=== PATIENT | female | born 1940 | race Caucasian/White ===

== ENCOUNTER 2017-11-21 16:34 | Emergency (ER) | payer OTHER, SELFPAY | END 2017-11-21 19:38 | disposition home or self-care (01) | PROVIDERS: Emergency Provider Emergency Medicine; Family Provider Family Medicine; PCP Family Medicine; Visit Provider Emergency Medicine | DX: R10.32 Left lower quadrant pain (principal) | CPT/HCPCS: 74177; 80053; 83605; 83690; 85025; 85610; 85730; 96361; 96374; 96375; 99058; 99284; C9113; J2405 ==

== ENCOUNTER → 2018-03-29 11:31 | Outpatient (CLI) | payer OTHER, SELFPAY | PROVIDERS: Family Provider Family Medicine; PCP Family Medicine; Visit Provider Internal Medicine | DX: L98.412 Non-pressure chronic ulcer of buttock with fat layer exposed (principal); L08.9 Local infection of the skin and subcutaneous tissue, unspecified; Z89.611 Acquired absence of right leg above knee | CPT/HCPCS: 87070; 87075; 87077; 87147; 87186; 87205; 99213 ==

== ENCOUNTER → 2018-03-29 14:28 | Outpatient (CLI) | payer OTHER, SELFPAY | PROVIDERS: Family Provider Family Medicine; PCP Family Medicine; Visit Provider Internal Medicine ==

== ENCOUNTER → 2018-04-06 13:22 | Outpatient (CLI) | payer OTHER, SELFPAY | PROVIDERS: Family Provider Family Medicine; PCP Family Medicine; Visit Provider Internal Medicine | DX: B95.7 Other staphylococcus as the cause of diseases classified elsewhere (principal); L89.310 Pressure ulcer of right buttock, unstageable | CPT/HCPCS: 11042 ==

== ENCOUNTER → 2018-04-13 14:06 | Outpatient (CLI) | payer OTHER, SELFPAY ==
--- NOTE | 2018-04-13 | OV.WND_ITS ---
Progress Note Details Patient Name: Jackie Yang Patient Number: [id number] PatientPatientDate: 04/13/2018 Clinician: Dori Hernández Clinician Cosigner: Mara Cohen Physician / Personnel Generalist Manager: Adalberto Lombardo SUBJECTIVE Chief Complaint This information was obtained from the patient Wound on Hip Allergies codeine, diphenhydramine, latex, penicillin, adhesive tape (Reaction: some adhesive tapes, rash) HPI This information was obtained from the patient 04/13/18. Seen by Dr. Lombardo. The patient does not report pain nor increased drainage associated with the chronic right gluteal non-pressure ulcer since her last visit. She'll also complete her course of doxycycline today that's been treating the recent resistant Staph cultured from the ulcer. 04/06/18. Seen by Dr. Lombardo. The patient does not report pain nor increased drainage associated with the chronic right gluteal non-pressure ulcer since her last visit. She apparently was not informed of the doxycycline that was prescribed to treat the resistant Staph positive culture taken at her last visit so she's not yet started on this. 03/29/18. Seen by Dr. Lombardo. 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 She does not report pain at the ulcer site and was placed on antibiotics recently by her PCP for an associated infection. She states she's not sedentary and in fact walks and performs daily activities as much as possible using a frame walker for assistance. Past Medical History This information was obtained from the patient Patient has a medical history of: Depression Anxiety Hypertension Hyperlipidemia Complaints and Symptoms This information was obtained from the patient Patient complains of: General Notes: I have reviewed and concur with the Review of Systems and Past Family Social History documents completed by the clinician, I have reviewed and concur with the Wound Assessment document completed by the clinician Hematologic/Lymphatic: Bleeding Tendency Integumentary (Hair/Skin/Nails): Open Sore Musculoskeletal: Assistive Devices Prior Wound History: Drainage, Erythema Patient denies complaints or symptoms related to: Cardiovascular (Central): Irregular heart beat Constitutional Symptoms (General Health): Chills, Fever Ear/Nose/Mouth/Throat: Hearing Loss / Aid Hematologic/Lymphatic: Bleeding / Clotting Disorders Musculoskeletal: Muscle Wasting Neurological: Loss of Protective Sensation Psychiatric: Memory Loss Respiratory: Shortness of Breath OBJECTIVE Constitutional Vital signs reviewed and noted. Well developed. Alert. Clean appearing.. Height/ Length: 61 in (154.94 cm), Weight: 113 lbs (51.36 kgs), BMI: 21.3, Temperature: 97.7 ?F (36.5 ?C), Pulse: 57 bpm, Respiratory Rate: 18 breaths/min, Blood Pressure: 129/79 mmHg, Pulse Oximetry: 100 %. Respiratory: No respiratory distress. Even respirations and without use of accessory muscles.. Musculoskeletal: Right leg AKA. Integumentary (Hair, Skin) Mild periwound erythema without warmth. Refer to appropriate clinician wound documentation for this visit; right gluteal ulcer extends to deep subcut with base minimally covered with pink granulation, remainder yellow adipose, fibrin and wet slough. Wound #1 Right Buttock is a chronic Full Thickness Atypical and has received a status of Not Healed. No tunneling has been noted. No sinus tract has been noted. No undermining has been noted. There is a large amount of serosanguineous drainage noted which has no odor. The patient reports a wound pain of level 0/10. The wound margin is rolled. Wound bed has No epithelialization, Yes eschar, Yes slough, No granulation. The periwound skin moisture is normal. The periwound skin exhibited: Induration , Rash, Erythema, Rubor. The temperature of the periwound skin is WNL. Periwound skin presents with s/s of infection. Confirmation Description and Treatment Plan is: Signs and Symptoms Present. Local Pulse is N/A. General Notes: 5.2x 5.0x .9 Can not visualize the base of the wound, full of slough. Neurological: Cranial nerves grossly intact with symmetric function normal by informal observation.. ASSESSMENT Active Problems ICD-10 (Encounter Diagnosis) L98.412 - Non-pressure chronic ulcer of buttock with fat layer exposed (Encounter Diagnosis) B95.7 - Other staphylococcus as the cause of diseases classified elsewhere PROCEDURES Wound #1 Wound #1 (Atypical) is located on the right buttock. A skin/subcutaneous tissue level surgical debridement with a total area debrided of 6 sq cm was performed by Adalberto Lombardo MD. Subcutaneous was removed along with devitalized tissue: slough. The following instrument(s) were used: forceps and scissors. Pain control was achieved using 4% Lido. A time out was conducted prior to the start of the procedure. No bleeding occurred. The procedure was tolerated well with a pain level of 0 throughout and a pain level of 0 following the procedure. Post Debridement Measurements: 5cm length x 1.2cm width x 0.9cm depth; with an area of 6 sq cm and a volume of 5.4 cubic cm; General Notes: Unable to see base of wound because of slough. Additional Information Muscle fascia or bone removed and sent to pathology?: No PLAN Wound Orders: Wound #1 Right Buttock Anesthetic Topical Xylocaine to wound bed. - In clinic Cleanser Cleanse Wound: - Normal Saline in clinic. May use distilled water at home. Rinse and gentle wipe. May Shower. - Please avoid getting tap water in wound. Dressings Pack wound: - Aquacel into wound bed gently. Primary dressing: - Border Foam dressing. Change Dressing: - Two Days Follow-Up Appointments Return Appointment: - - One week Other information: If you develop fever, chills, increased pain, drainage, redness or swelling please call our office. If after hours, respond to the ER. Should you experience any significant changes in your wound(s) or have any questions regarding your home care instructions please contact the wound center @ [phone]. If after hours, contact your primary care physician or go to the hospital emergency room. Additional Orders: Off-Loading Keep weight off: - Right buttock as much as possible. Use EHOB cushion when sitting. Scribing Attestation I attest, as the nurse, that I scribed these orders for the physician. I've reviewed the clinician's documentation and agree with the evaluation and plan as written. In addition, the patient's ulcer demonstrates evidence of non-viable devitalized tissue which will continue to benefit from sharp debridement to help promote granulation and expedite healing. Also, I'll defer additional antibiotics and we'll plan on placing a wound vac once it's approved by insurance. Electronic Signature(s) Signed By: Date: Adalberto Lombardo MD 04/14/2018 06:00:06 Entered By: Adalberto Lombardo on 04/14/2018 05:45:39
== END ==
PROVIDERS: Family Provider Family Medicine; PCP Family Medicine; Visit Provider Internal Medicine
DX: L98.412 Non-pressure chronic ulcer of buttock with fat layer exposed (principal); B95.7 Other staphylococcus as the cause of diseases classified elsewhere
CPT/HCPCS: 11042

== ENCOUNTER → 2018-04-20 14:10 | Outpatient (CLI) | payer OTHER, SELFPAY ==
--- NOTE | 2018-04-20 | OV.WND_ITS ---
Progress Note Details Patient Name: Jackie Yang Patient Number: [id number] PatientPatientDate: 04/20/2018 Clinician: Dori Hernández Clinician Cosigner: Leti Ye Physician / Development Assistant: Adalberto Lombardo SUBJECTIVE Chief Complaint This information was obtained from the patient Wound on Hip Allergies codeine, diphenhydramine, latex, penicillin, adhesive tape (Reaction: some adhesive tapes, rash) HPI This information was obtained from the patient 04/20/18. Seen by Dr. Lombardo. The patient does not report pain nor increased drainage associated with the chronic right gluteal non-pressure ulcer since her last visit. 04/13/18. Seen by Dr. Lombardo. The patient does not report pain nor increased drainage associated with the chronic right gluteal non-pressure ulcer since her last visit. She'll also complete her course of doxycycline today that's been treating the recent resistant Staph cultured from the ulcer. 04/06/18. Seen by Dr. Lombardo. The patient does not report pain nor increased drainage associated with the chronic right gluteal non-pressure ulcer since her last visit. She apparently was not informed of the doxycycline that was prescribed to treat the resistant Staph positive culture taken at her last visit so she's not yet started on this. 03/29/18. Seen by Dr. Lombardo. 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 She does not report pain at the ulcer site and was placed on antibiotics recently by her PCP for an associated infection. She states she's not sedentary and in fact walks and performs daily activities as much as possible using a frame walker for assistance. Past Medical History This information was obtained from the patient Patient has a medical history of: Depression Anxiety Hypertension Hyperlipidemia Complaints and Symptoms This information was obtained from the patient Patient complains of: General Notes: I have reviewed and concur with the Review of Systems and Past Family Social History documents completed by the clinician, I have reviewed and concur with the Wound Assessment document completed by the clinician Hematologic/Lymphatic: Bleeding Tendency Integumentary (Hair/Skin/Nails): Open Sore Musculoskeletal: Assistive Devices Prior Wound History: Drainage, Erythema Patient denies complaints or symptoms related to: Cardiovascular (Central): Irregular heart beat Constitutional Symptoms (General Health): Chills, Fever Ear/Nose/Mouth/Throat: Hearing Loss / Aid Hematologic/Lymphatic: Bleeding / Clotting Disorders Musculoskeletal: Muscle Wasting Neurological: Loss of Protective Sensation Psychiatric: Memory Loss Respiratory: Shortness of Breath OBJECTIVE Constitutional Vital signs reviewed and noted. Well developed. Alert. Clean appearing.. Height/ Length: 61 in (154.94 cm), Weight: 113 lbs (51.36 kgs), BMI: 21.3, Temperature: 98.0 ?F ( 36.67 ?C), Pulse: 57 bpm, Respiratory Rate: 18 breaths/min, Blood Pressure: 122/57 mmHg, Pulse Oximetry: 97 %. Respiratory: No respiratory distress. Even respirations and without use of accessory muscles.. Musculoskeletal: Right leg AKA. Integumentary (Hair, Skin) Mild periwound erythema without warmth. Refer to appropriate clinician wound documentation for this visit; right gluteal ulcer extends to deep subcut with base minimally covered with pink granulation, remainder mostly healthy appearing adipose with some fibrin and slough. Wound #1 Right Buttock is a chronic Full Thickness Atypical and has received a status of Not Healed. Subsequent wound encounter measurements are 5cm length x 2cm width x 1.8cm depth, with an area of 10 sq cm and a volume of 18 cubic cm. Necrotic adipose is exposed. No tunneling has been noted. No sinus tract has been noted. No undermining has been noted. There is a large amount of serosanguineous drainage noted which has no odor. The patient reports a wound pain of level 0/10. The wound margin is rolled. Wound bed has No epithelialization, Yes eschar, Yes slough, Yes bright red, firm granulation. The periwound skin moisture is normal. The periwound skin exhibited: Induration , Erythema. The temperature of the periwound skin is WNL. Periwound skin presents with s/s of infection. Confirmation Description and Treatment Plan is: Signs and Symptoms Present. Local Pulse is N/A. General Notes: Can not visualize wound base, full of slough, and dry eschar at the 9:00. Neurological: Cranial nerves grossly intact with symmetric function normal by informal observation.. ASSESSMENT Active Problems ICD-10 (Encounter Diagnosis) L98.412 - Non-pressure chronic ulcer of buttock with fat layer exposed PROCEDURES Wound #1 Wound #1 (Atypical) is located on the right buttock. A skin/subcutaneous tissue level surgical debridement with a total area debrided of 10 sq cm was performed by Adalberto Lombardo MD. to remove devitalized tissue: slough. The following instrument(s) were used: curette. Pain control was achieved using 4% Lido. A time out was conducted prior to the start of the procedure. No bleeding occurred. The procedure was tolerated well with a pain level of 0 throughout and a pain level of 0 following the procedure. Post Debridement Measurements: 5cm length x 2cm width x 1.8cm depth; with an area of 10 sq cm and a volume of 18 cubic cm; Additional Information Muscle fascia or bone removed and sent to pathology?: No PLAN Wound Orders: Wound #1 Right Buttock Anesthetic Topical Xylocaine to wound bed. - In clinic Cleanser Cleanse Wound: - Normal Saline in clinic. May use distilled water at home. Rinse and gentle wipe. May Shower. - Please avoid getting tap water in wound. Dressings Pack wound: - Aquacel into wound bed gently. Primary dressing: - Border Foam dressing. Change Dressing: - Every Two Days Off-Loading Keep weight off: - Right buttock as much as possible. Use EHOB cushion when sitting. Follow-Up Appointments Return Appointment: - - One week Other information: If you develop fever, chills, increased pain, drainage, redness or swelling please call our office. If after hours, respond to the ER. Should you experience any significant changes in your wound(s) or have any questions regarding your home care instructions please contact the wound center @ [phone]. If after hours, contact your primary care physician or go to the hospital emergency room. Scribing Attestation I attest, as the nurse, that I scribed these orders for the physician. I've reviewed the clinician's documentation and agree with the evaluation and plan as written. In addition, the patient's ulcer demonstrates evidence of non-viable devitalized tissue which will continue to benefit from sharp debridement to help promote granulation and expedite healing. Also, we'll readdress the issue of insurance approval for a [facility] wound vac which will help regarding granulation of the ulcer base. Electronic Signature(s) Signed By: Date: Adalberto Lombardo MD 04/21/2018 06:31:21 Entered By: Adalberto Lombardo on 04/21/2018 06:04:35
== END ==
PROVIDERS: Family Provider Family Medicine; PCP Family Medicine; Visit Provider Internal Medicine
DX: L98.412 Non-pressure chronic ulcer of buttock with fat layer exposed (principal)
CPT/HCPCS: 11042

== ENCOUNTER → 2018-04-27 13:40 | Outpatient (CLI) | payer OTHER, SELFPAY ==
--- NOTE | 2018-04-27 | OV.WND_ITS ---
Progress Note Details Patient Name: Jackie Yang Patient Number: [id number] PatientPatientDate: 04/27/2018 Clinician: Dori Hernández Clinician Cosigner: Mara Cohen Physician / Cloth Washer Operator: Adalberto Lombardo SUBJECTIVE Chief Complaint This information was obtained from the patient Wound on Hip Allergies codeine, diphenhydramine, latex, penicillin, adhesive tape (Reaction: some adhesive tapes, rash) HPI This information was obtained from the patient 04/07/18. Seen by Dr. Lombardo. The patient does not report pain nor increased drainage associated with the chronic right gluteal non-pressure ulcer since her last visit. 04/20/18. Seen by Dr. Lombardo. The patient does not report pain nor increased drainage associated with the chronic right gluteal non-pressure ulcer since her last visit. 04/13/18. Seen by Dr. Lombardo. The patient does not report pain nor increased drainage associated with the chronic right gluteal non-pressure ulcer since her last visit. She'll also complete her course of doxycycline today that's been treating the recent resistant Staph cultured from the ulcer. 04/06/18. Seen by Dr. Lombardo. The patient does not report pain nor increased drainage associated with the chronic right gluteal non-pressure ulcer since her last visit. She apparently was not informed of the doxycycline that was prescribed to treat the resistant Staph positive culture taken at her last visit so she's not yet started on this. 03/29/18. Seen by Dr. Lombardo. 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 She does not report pain at the ulcer site and was placed on antibiotics recently by her PCP for an associated infection. She states she's not sedentary and in fact walks and performs daily activities as much as possible using a frame walker for assistance. Past Medical History This information was obtained from the patient Patient has a medical history of: Depression Anxiety Hypertension Hyperlipidemia Complaints and Symptoms This information was obtained from the patient Patient complains of: General Notes: I have reviewed and concur with the Review of Systems and Past Family Social History documents completed by the clinician, I have reviewed and concur with the Wound Assessment document completed by the clinician Hematologic/Lymphatic: Bleeding Tendency Integumentary (Hair/Skin/Nails): Open Sore Musculoskeletal: Assistive Devices Prior Wound History: Drainage, Erythema Patient denies complaints or symptoms related to: Cardiovascular (Central): Irregular heart beat Constitutional Symptoms (General Health): Chills, Fever Ear/Nose/Mouth/Throat: Hearing Loss / Aid Hematologic/Lymphatic: Bleeding / Clotting Disorders Musculoskeletal: Muscle Wasting Neurological: Loss of Protective Sensation Psychiatric: Memory Loss Respiratory: Shortness of Breath OBJECTIVE Constitutional Vital signs reviewed and noted. Well developed. Alert. Clean appearing.. Height/ Length: 61 in (154.94 cm), Weight: 113 lbs (51.36 kgs), BMI: 21.3, Temperature: 97.5 ?F ( 36.39 ?C), Pulse: 46 bpm, Respiratory Rate: 18 breaths/min, Blood Pressure: 125/58 mmHg, Pulse Oximetry: 99 %. Ears, Nose, Mouth, and Throat: No clinically significant hearing loss on informal examination. Respiratory: No respiratory distress. Even respirations and without use of accessory muscles.. Integumentary (Hair, Skin) No periwound erythema, warmth, or significant drainage. No periwound rashes appreciated or noted otherwise.. Refer to appropriate clinician wound documentation for this visit; right gluteal ulcer extends to deep subcut with base minimally covered with pink granulation, remainder healthy appearing adipose with some fibrin and slough along the proximal margin. Wound #1 Right Buttock is a chronic Full Thickness Atypical and has received a status of Not Healed. Subsequent wound encounter measurements are 4.6cm length x 2.6cm width x 1.2cm depth, with an area of 11.96 sq cm and a volume of 14.352 cubic cm. Necrotic adipose is exposed. No tunneling has been noted. No sinus tract has been noted. Undermining has been noted at 8:00 and ends at 10:00 with a maximum distance of 1cm. There is a moderate amount of serosanguineous drainage noted which has no odor. The patient reports a wound pain of level 0/10. The wound margin is rolled. Wound bed has No epithelialization, Yes eschar, Yes slough, Yes bright red, firm granulation. The periwound skin moisture is normal. The periwound skin exhibited: Induration , Erythema. The temperature of the periwound skin is WNL. Periwound skin does not exhibit signs or symptoms of infection. Local Pulse is N/A. Neurological: Cranial nerves grossly intact with symmetric function normal by informal observation.. ASSESSMENT Active Problems ICD-10 (Encounter Diagnosis) L98.412 - Non-pressure chronic ulcer of buttock with fat layer exposed PROCEDURES Wound #1 Wound #1 (Atypical) is located on the right buttock. A skin/subcutaneous tissue level surgical debridement with a total area debrided of 12.22 sq cm was performed by Adalberto Lombardo MD. Adipose and Subcutaneous were removed along with devitalized tissue: slough. The following instrument(s) were used: curette and scissors. Pain control was achieved using 4% Lido. A time out was conducted prior to the start of the procedure. No bleeding occurred. The procedure was tolerated well with a pain level of 3 throughout and a pain level of 0 following the procedure. Post Debridement Measurements: 4.7cm length x 2.6cm width x 1.3cm depth; with an area of 12.22 sq cm and a volume of 15.886 cubic cm; Additional Information Muscle fascia or bone removed and sent to pathology?: No PLAN Wound Orders: Wound #1 Right Buttock Anesthetic Topical Xylocaine to wound bed. - In clinic Cleanser Cleanse Wound: - Normal Saline in clinic. May use distilled water at home. Rinse and gentle wipe. May Shower. - Please avoid getting tap water in wound. Topical Treatments Antibiotic/Antimicrobial Ointment/Cream. - Hydrogel to wound bed. Dressings Pack wound: - 2x2 gauze Primary dressing: - Border Foam dressing. Change Dressing: - Change every day. Off-Loading Keep weight off: - Right buttock. Use EHOB cushion when sitting. Turn every 2 hours. Avoid position directing pressure to Wound site. Limit side lying to 30 degree tilt. Limit HOB elevation to 30 degrees in bed. Follow-Up Appointments Return Appointment: - - On Tuesday and Tuesday next week. We will place a wound vac on your wound next week. Other information: If you develop fever, chills, increased pain, drainage, redness or swelling please call our office. If after hours, respond to the ER. Should you experience any significant changes in your wound(s) or have any questions regarding your home care instructions please contact the wound center @ [phone]. If after hours, contact your primary care physician or go to the hospital emergency room. Scribing Attestation I attest, as the nurse, that I scribed these orders for the physician. I've reviewed the clinician's documentation and agree with the evaluation and plan as written. In addition, the patient's ulcer demonstrates evidence of non-viable devitalized tissue which will continue to benefit from sharp debridement to help promote granulation and expedite healing. Also, we'll continue to hydrate the ulcer base to prevent drying of the adipose tissue and plan on placing a [employer] wound vac at her next visit. Electronic Signature(s) Signed By: Date: Adalberto Lombardo MD 04/28/2018 11:44:00 Entered By: Adalberto Lombardo on 04/28/2018 11:11:16
== END ==
PROVIDERS: Family Provider Family Medicine; PCP Family Medicine; Visit Provider Internal Medicine
DX: L98.412 Non-pressure chronic ulcer of buttock with fat layer exposed (principal)
CPT/HCPCS: 11042

== ENCOUNTER → 2018-05-02 14:53 | Outpatient (CLI) | payer OTHER, SELFPAY ==
--- NOTE | 2018-05-02 | OV.WND_ITS ---
Progress Note Details Patient Name: Jackie Yang Patient Number: [id number] PatientPatientDate: 05/02/2018 Clinician: Leti Ye Clinician Cosigner: Dori Hernández Physician / Door Cutter: Adalberto Lombardo SUBJECTIVE Chief Complaint This information was obtained from the patient Wound on Hip Allergies codeine, diphenhydramine, latex, penicillin, adhesive tape (Reaction: some adhesive tapes, rash) HPI This information was obtained from the patient 05/02/18. Seen by Dr. Lombardo. 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 04/27/18. Seen by Dr. Lombardo. The patient does not report pain nor increased drainage associated with the chronic right gluteal non-pressure ulcer since her last visit. 04/20/18. Seen by Dr. Lombardo. The patient does not report pain nor increased drainage associated with the chronic right gluteal non-pressure ulcer since her last visit. 04/13/18. Seen by Dr. Lombardo. The patient does not report pain nor increased drainage associated with the chronic right gluteal non-pressure ulcer since her last visit. She'll also complete her course of doxycycline today that's been treating the recent resistant Staph cultured from the ulcer. 04/06/18. Seen by Dr. Lombardo. The patient does not report pain nor increased drainage associated with the chronic right gluteal non-pressure ulcer since her last visit. She apparently was not informed of the doxycycline that was prescribed to treat the resistant Staph positive culture taken at her last visit so she's not yet started on this. 03/29/18. Seen by Dr. Lombardo. 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 She does not report pain at the ulcer site and was placed on antibiotics recently by her PCP for an associated infection. She states she's not sedentary and in fact walks and performs daily activities as much as possible using a frame walker for assistance. Past Medical History This information was obtained from the patient Patient has a medical history of: Depression Anxiety Hypertension Hyperlipidemia Complaints and Symptoms This information was obtained from the patient Patient complains of: General Notes: I have reviewed and concur with the Review of Systems and Past Family Social History documents completed by the clinician, I have reviewed and concur with the Wound Assessment document completed by the clinician Hematologic/Lymphatic: Bleeding Tendency Integumentary (Hair/Skin/Nails): Open Sore Musculoskeletal: Assistive Devices Prior Wound History: Drainage, Erythema Patient denies complaints or symptoms related to: Cardiovascular (Central): Irregular heart beat Constitutional Symptoms (General Health): Chills, Fever Ear/Nose/Mouth/Throat: Hearing Loss / Aid Hematologic/Lymphatic: Bleeding / Clotting Disorders Musculoskeletal: Muscle Wasting Neurological: Loss of Protective Sensation Psychiatric: Memory Loss Respiratory: Shortness of Breath OBJECTIVE Constitutional BP elevated; Afebrile; Alert and in no distress. Well developed. Alert. Clean appearing.. Height/Length: 61 in (154.94 cm), Weight: 113 lbs (51.36 kgs), BMI: 21.3, Temperature: 98.3 ?F (36.83 ?C), Pulse: 51 bpm, Respiratory Rate: 18 breaths/min, Blood Pressure: 156/78 mmHg, Pulse Oximetry: 100 %. Respiratory: No respiratory distress. Even respirations and without use of accessory muscles.. Musculoskeletal: Right leg AKA. Integumentary (Hair, Skin) Mild periwound erythema with warmth. Refer to appropriate clinician wound documentation for this visit; right gluteal ulcer extends to yellow, healthy appearing adipose with approx 30% distal based covered with pink granulation and minimal slough. Wound #1 Right Buttock is a chronic Full Thickness Atypical and has received a status of Not Healed. Subsequent wound encounter measurements are 5.1cm length x 2.1cm width x 1.5cm depth, with an area of 10.71 sq cm and a volume of 16.065 cubic cm. Necrotic adipose is exposed. No tunneling has been noted. No sinus tract has been noted. Undermining has been noted at 8:00 and ends at 10:00 with a maximum distance of 1.2cm. There is a moderate amount of serosanguineous drainage noted which has no odor. The patient reports a wound pain of level 0/10. The wound margin is rolled. Wound bed has No epithelialization, Yes eschar, Yes slough, Yes bright red, pink, firm granulation. The periwound skin moisture is normal. The periwound skin exhibited: Induration , [place], Erythema. The temperature of the periwound skin is Warm. Periwound skin does not exhibit signs or symptoms of infection. Local Pulse is N/A. General Notes: Induration from 11 to 3 o clock measured 0.5 Neurological: Cranial nerves grossly intact with symmetric function normal by informal observation.. ASSESSMENT Active Problems ICD-10 (Encounter Diagnosis) L98.412 - Non-pressure chronic ulcer of buttock with fat layer exposed PROCEDURES Wound #1 Wound #1 (Atypical) is located on the right buttock. A skin/subcutaneous tissue level surgical debridement with a total area debrided of 10.71 sq cm was performed by Adalberto Lombardo MD. Adipose and Subcutaneous were removed along with devitalized tissue: slough. The following instrument(s) were used: curette. Pain control was achieved using 4% Lido. A time out was conducted prior to the start of the procedure. A minimal amount of bleeding was controlled with n/a. The procedure was tolerated well with a pain level of 0 throughout and a pain level of 0 following the procedure. Post Debridement Measurements: 5.1cm length x 2.1cm width x 1.6cm depth; with an area of 10.71 sq cm and a volume of 17.136 cubic cm; Negative Pressure Wound Therapy Application ? Performed for: Wound #1 Right Buttock ? Performed By: Leti Ye LPN/KIMBERLY ? Type: KCI ActiV.A.C. ? Coverage Size (sq cm): 10.71 ? Pressure Type: Constant ? Pressure Settin mmHG ? Sponge Type: Black ? Sponge Size: Medium ? Total number of sponges removed prior to the application: 2 ? Total number of sponges used for this application: 2 ? Date Initiated: 05/02/2018 ? Daily Hours of Therapy: 24 ? Set Clock to 0 Hours: No Additional Information Muscle fascia or bone removed and sent to pathology?: No PLAN Wound Orders: Wound #1 Right Buttock Anesthetic Topical Xylocaine to wound bed. - In clinic Cleanser Cleanse Wound: - Normal Saline in clinic. May use distilled water at home. Rinse and gentle wipe. In clinic. Other order: - Sponge bath for now. Topical Treatments Antibiotic/Antimicrobial Ointment/Cream. - Gentamicin Dressings Wound Vac: - Adaptic to wound bed. Then one piece of black foam with black foam button. 100mmHg Low Pressure continuous. You should remain on V.A.C. Therapy 24-hours a day. You should not be disconnected for more than 2 hours a day. The clear drape is waterproof and you may wash or shower with dressings in place ONLY if: You are disconnected from the therapy unit. The tubing is clamped. You take care not to soak the dressing. The therapy unit is an electrical system and should not become wet. If dressings become soiled, gently clean with mild soap and water. If the therapy is off for more than 15 minutes, the alarm will sound. If you need more time, press the alarm delay button. You can reset the alarm as many times as you need. If the THERAPY ON/OFF button is accidentally turned off, push the same button to turn the unit back on. The system will return to all the right settings and therapy will continue. Notify your physician/caregiver immediately if: You notice a significant change in color or quantity of the fluid. For example, if you see clear drainage turn to cloudy or bright red. You see the canister fill rapidly. You observe increased redness or odor from the wound. You experience increasing pain. The alarm will not turn off and you have been unable to solve the problem. The V.A.C. Therapy unit is turned off for more than 2 hours per day. You start any new medication. Attending physician/caregiver information: Name [facility] Contact: Change Dressing: - Leave in place. We will change on Tuesday morning Off-Loading Keep weight off: - Right buttock. Use EHOB cushion when sitting. Turn every 2 hours. Avoid position directing pressure to Wound site. Limit side lying to 30 degree tilt. Limit HOB elevation to 30 degrees in bed. Follow-Up Appointments Return Appointment: - - This Saturday May 05, 2018 Other information: If you develop fever, chills, increased pain, drainage, redness or swelling please call our office. If after hours, respond to the ER. Should you experience any significant changes in your wound(s) or have any questions regarding your home care instructions please contact the wound center @ [phone]. If after hours, contact your primary care physician or go to the hospital emergency room. Scribing Attestation I attest, as the nurse, that I scribed these orders for the physician. Medications prescribed: doxycycline hyclate - oral 100 mg capsule twice daily for 7 days starting 2017 I've reviewed the clinician's documentation and agree with the evaluation and plan as written. In addition, the patient's ulcer demonstrates evidence of non-viable devitalized tissue which will continue to benefit from sharp debridement to help promote granulation and expedite healing. Negative pressure wound therapy will be utilized to facilitate granulation and removal of exudate and infectious material with the goal of expediting wound healing. Also, the patient will start on doxycycline to cover for the recent Staph capitis positive wound culture taken from the ulcer. Electronic Signature(s) Signed By: Date: Adalberto Lombardo MD 05/03/2018 07:59:58 Entered By: Adalberto Lombardo on 05/03/2018 07:27:44
== END ==
PROVIDERS: Family Provider Family Medicine; PCP Family Medicine; Visit Provider Internal Medicine
DX: L98.412 Non-pressure chronic ulcer of buttock with fat layer exposed (principal); B95.7 Other staphylococcus as the cause of diseases classified elsewhere; I96 Gangrene, not elsewhere classified
CPT/HCPCS: 11042; 97605

== ENCOUNTER → 2018-05-05 10:40 | Outpatient (CLI) | payer OTHER, SELFPAY ==
--- NOTE | 2018-05-05 | OV.WND_ITS ---
Progress Note Details Patient Name: Jackie Yang Patient Number: [id number] PatientPatientDate: 05/05/2018 Clinician: Dori Hrenández Clinician Cosigner: Mara Cohen Physician / Synthetic Staple Extruder: Adalberto Lombardo SUBJECTIVE Chief Complaint This information was obtained from the patient Wound on Hip Allergies codeine, diphenhydramine, latex, penicillin, adhesive tape (Reaction: some adhesive tapes, rash) HPI This information was obtained from the patient 05/05/18. Seen by Dr. Lombardo. The patient does not report pain nor increased drainage associated with the chronic right gluteal non-pressure ulcer since her last visit and she tolerated the I wound vac complaining only of some discomfort where if may be contacting her prosthetic. She's also taking doxycycline for the recent Staph wound culture without reporting adverse effects. 05/02/18. Seen by Dr. Lombardo. 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 04/27/18. Seen by Dr. Lombardo. The patient does not report pain nor increased drainage associated with the chronic right gluteal non-pressure ulcer since her last visit. 04/20/18. Seen by Dr. Lombardo. The patient does not report pain nor increased drainage associated with the chronic right gluteal non-pressure ulcer since her last visit. 04/13/18. Seen by Dr. Lombardo. The patient does not report pain nor increased drainage associated with the chronic right gluteal non-pressure ulcer since her last visit. She'll also complete her course of doxycycline today that's been treating the recent resistant Staph cultured from the ulcer. 04/06/18. Seen by Dr. Lombardo. The patient does not report pain nor increased drainage associated with the chronic right gluteal non-pressure ulcer since her last visit. She apparently was not informed of the doxycycline that was prescribed to treat the resistant Staph positive culture taken at her last visit so she's not yet started on this. 03/29/18. Seen by Dr. Lombardo. 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 She does not report pain at the ulcer site and was placed on antibiotics recently by her PCP for an associated infection. She states she's not sedentary and in fact walks and performs daily activities as much as possible using a frame walker for assistance. Past Medical History This information was obtained from the patient Patient has a medical history of: Depression Anxiety Hypertension Hyperlipidemia Complaints and Symptoms This information was obtained from the patient Patient complains of: General Notes: I have reviewed and concur with the Review of Systems and Past Family Social History documents completed by the clinician, I have reviewed and concur with the Wound Assessment document completed by the clinician Hematologic/Lymphatic: Bleeding Tendency Integumentary (Hair/Skin/Nails): Open Sore Musculoskeletal: Assistive Devices Prior Wound History: Drainage, Erythema Patient denies complaints or symptoms related to: Cardiovascular (Central): Irregular heart beat Constitutional Symptoms (General Health): Chills, Fever Ear/Nose/Mouth/Throat: Hearing Loss / Aid Hematologic/Lymphatic: Bleeding / Clotting Disorders Musculoskeletal: Muscle Wasting Neurological: Loss of Protective Sensation Psychiatric: Memory Loss Respiratory: Shortness of Breath OBJECTIVE Constitutional Vital signs reviewed and noted. Well developed. Alert. Clean appearing.. Height/ Length: 61 in (154.94 cm), Weight: 113 lbs (51.36 kgs), BMI: 21.3, Temperature: 97.6 ?F ( 36.44 ?C), Pulse: 50 bpm, Respiratory Rate: 18 breaths/min, Blood Pressure: 122/70 mmHg, Pulse Oximetry: 98 %. Ears, Nose, Mouth, and Throat: No clinically significant hearing loss on informal examination. Respiratory: No respiratory distress. Even respirations and without use of accessory muscles.. Musculoskeletal: Right leg AKA. Integumentary (Hair, Skin) No periwound erythema, warmth, or significant drainage. No periwound rashes appreciated or noted otherwise.. Refer to appropriate clinician wound documentation for this visit; right gluteal ulcer extends to healthy appearing adipose with base partially covered with pink granulation, remainder fibrin and slough; improved from last visit in terms of granulation. Wound #1 Right Buttock is a chronic Full Thickness Atypical and has received a status of Not Healed. Subsequent wound encounter measurements are 5cm length x 1.5cm width x 1.5cm depth, with an area of 7.5 sq cm and a volume of 11.25 cubic cm. Necrotic adipose is exposed. Undermining has been noted at 8:00 and ends at 10:00 with a maximum distance of 1cm. There is a small amount of serosanguineous drainage noted which has no odor. The patient reports a wound pain of level 0/10. The wound margin is rolled. Wound bed has No epithelialization, No eschar, Yes slough, Yes bright red, firm granulation. The periwound skin moisture is normal. The periwound skin exhibited: Induration , Erythema. The periwound skin did not exhibit: Atroph[place]. The temperature of the periwound skin is Warm. Periwound skin does not exhibit signs or symptoms of infection. Local Pulse is N/A. Neurological: Cranial nerves grossly intact with symmetric function normal by informal observation.. ASSESSMENT Active Problems ICD-10 (Encounter Diagnosis) L98.412 - Non-pressure chronic ulcer of buttock with fat layer exposed (Encounter Diagnosis) B95.7 - Other staphylococcus as the cause of diseases classified elsewhere PROCEDURES Wound #1 Wound #1 (Atypical) is located on the right buttock. A skin/subcutaneous tissue level surgical debridement with a total area debrided of 7.5 sq cm was performed by Adalberto Lombardo MD. Subcutaneous and Adipose were removed along with devitalized tissue: slough. The following instrument(s) were used: curette, forceps, and scissors. Pain control was achieved using 4% Lido. A time out was not conducted prior to the start of the procedure. A minimal amount of bleeding was controlled with pressure. The procedure was tolerated well with a pain level of 0 throughout and a pain level of 0 following the procedure. Post Debridement Measurements: 5cm length x 1.5cm width x 7.5cm depth; with an area of 7.5 sq cm and a volume of 56.25 cubic cm; Additional Information Muscle fascia or bone removed and sent to pathology?: No PLAN Wound Orders: Wound #1 Right Buttock Anesthetic Topical Xylocaine to wound bed. - In clinic Cleanser Cleanse Wound: - Normal Saline in clinic. May use distilled water at home. Rinse and gentle wipe. In clinic. Other order: - Sponge bath for now. Dressings Wound Vac: - Adaptic to wound bed. Then one piece of black foam with black foam button. 100mmHg Low Pressure continuous. You should remain on V.A.C. Therapy 24-hours a day. You should not be disconnected for more than 2 hours a day. The clear drape is waterproof and you may wash or shower with dressings in place ONLY if: You are disconnected from the therapy unit. The tubing is clamped. You take care not to soak the dressing. The therapy unit is an electrical system and should not become wet. If dressings become soiled, gently clean with mild soap and water. If the therapy is off for more than 15 minutes, the alarm will sound. If you need more time, press the alarm delay button. You can reset the alarm as many times as you need. If the THERAPY ON/OFF button is accidentally turned off, push the same button to turn the unit back on. The system will return to all the right settings and therapy will continue. Notify your physician/caregiver immediately if: You notice a significant change in color or quantity of the fluid. For example, if you see clear drainage turn to cloudy or bright red. You see the canister fill rapidly. You observe increased redness or odor from the wound. You experience increasing pain. The alarm will not turn off and you have been unable to solve the problem. The V.A.C. Therapy unit is turned off for more than 2 hours per day. You start any new medication. Attending physician/caregiver information: Name [facility] Contact: Change Dressing: - Leave in place. We will change on Tuesday morning Off-Loading Keep weight off: - Right buttock. Use EHOB cushion when sitting. Turn every 2 hours. Avoid position directing pressure to Wound site. Limit side lying to 30 degree tilt. Limit HOB elevation to 30 degrees in bed. Follow-Up Appointments Return Appointment: - - Tuesdays and Fridays Other information: If you develop fever, chills, increased pain, drainage, redness or swelling please call our office. If after hours, respond to the ER. Should you experience any significant changes in your wound(s) or have any questions regarding your home care instructions please contact the wound center @ [phone]. If after hours, contact your primary care physician or go to the hospital emergency room. Scribing Attestation I attest, as the nurse, that I scribed these orders for the physician. General Notes: Finish antibiotice I've reviewed the clinician's documentation and agree with the evaluation and plan as written. In addition, the patient's ulcer demonstrates evidence of non-viable devitalized tissue which will continue to benefit from sharp debridement to help promote granulation and expedite healing. Negative pressure wound therapy will be utilized to facilitate granulation and removal of exudate and infectious material with the goal of expediting wound healing. Also, the patient will complete her course of doxycyline as prescribed and we' ll defer additional antibiotics thereafter. Electronic Signature(s) Signed By: Date: Adalberto Lombardo MD 05/08/2018 13:43:10 Entered By: Adalberto Lombardo on 05/08/2018 11:31:57 Addendum at 05/26/2018 10:34:17 Wound vac documented by nurse. Addendum Signed By: Adalberto Lombardo on 05/26/2018 10:34:17
== END ==
PROVIDERS: Family Provider Family Medicine; PCP Family Medicine; Visit Provider Internal Medicine
DX: L98.412 Non-pressure chronic ulcer of buttock with fat layer exposed (principal); B95.7 Other staphylococcus as the cause of diseases classified elsewhere
CPT/HCPCS: 11042; 97605

== ENCOUNTER → 2018-05-09 14:12 | Outpatient (CLI) | payer OTHER, SELFPAY ==
--- NOTE | 2018-05-09 | OV.WND_ITS ---
Progress Note Details Patient Name: Jackie Yang Patient Number: [id number] PatientPatientDate: 05/09/2018 Clinician: Leti Ye Clinician Cosigner: Laureen Carnes Physician / Manager Search Engine: Adalberto Lombardo SUBJECTIVE Chief Complaint This information was obtained from the patient Wound on Hip Allergies codeine, diphenhydramine, latex, penicillin, adhesive tape (Reaction: some adhesive tapes, rash) HPI This information was obtained from the patient 05/09/18. Seen by Dr. Lombardo. The patient reports her wound vac alarmed frequently over the past few days however it was left in place and she does not report significant pain or increased drainage associated with the chronic right gluteal non-pressure ulcer since her last visit. 05/05/18. Seen by Dr. Lombardo. The patient does not report pain nor increased drainage associated with the chronic right gluteal non-pressure ulcer since her last visit and she tolerated the [facility] wound vac complaining only of some discomfort where if may be contacting her prosthetic. She's also taking doxycycline for the recent Staph wound culture without reporting adverse effects. 05/02/18. Seen by Dr. Lombardo. 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 04/27/18. Seen by Dr. Lombardo. The patient does not report pain nor increased drainage associated with the chronic right gluteal non-pressure ulcer since her last visit. 04/20/18. Seen by Dr. Lombardo. The patient does not report pain nor increased drainage associated with the chronic right gluteal non-pressure ulcer since her last visit. 04/13/18. Seen by Dr. Lombardo. The patient does not report pain nor increased drainage associated with the chronic right gluteal non-pressure ulcer since her last visit. She'll also complete her course of doxycycline today that's been treating the recent resistant Staph cultured from the ulcer. 04/06/18. Seen by Dr. Lombardo. The patient does not report pain nor increased drainage associated with the chronic right gluteal non-pressure ulcer since her last visit. She apparently was not informed of the doxycycline that was prescribed to treat the resistant Staph positive culture taken at her last visit so she's not yet started on this. 03/29/18. Seen by Dr. Lombardo. 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 She does not report pain at the ulcer site and was placed on antibiotics recently by her PCP for an associated infection. She states she's not sedentary and in fact walks and performs daily activities as much as possible using a frame walker for assistance. Past Medical History This information was obtained from the patient Patient has a medical history of: Depression Anxiety Hypertension Hyperlipidemia Complaints and Symptoms This information was obtained from the patient Patient complains of: General Notes: I have reviewed and concur with the Review of Systems and Past Family Social History documents completed by the clinician, I have reviewed and concur with the Wound Assessment document completed by the clinician Hematologic/Lymphatic: Bleeding Tendency Integumentary (Hair/Skin/Nails): Open Sore Musculoskeletal: Assistive Devices Prior Wound History: Drainage, Erythema Patient denies complaints or symptoms related to: Cardiovascular (Central): Irregular heart beat Constitutional Symptoms (General Health): Chills, Fever Ear/Nose/Mouth/Throat: Hearing Loss / Aid Hematologic/Lymphatic: Bleeding / Clotting Disorders Musculoskeletal: Muscle Wasting Neurological: Loss of Protective Sensation Psychiatric: Memory Loss Respiratory: Shortness of Breath OBJECTIVE Constitutional Vital signs reviewed and noted. Well developed. Alert. Clean appearing.. Height/ Length: 61 in (154.94 cm), Weight: 113 lbs (51.36 kgs), BMI: 21.3, Temperature: 97.8 ?F ( 36.56 ?C), Pulse: 48 bpm, Respiratory Rate: 18 breaths/min, Blood Pressure: 105/56 mmHg, Pulse Oximetry: 99 %. Respiratory: No respiratory distress. Even respirations and without use of accessory muscles.. Integumentary (Hair, Skin) No periwound erythema, warmth, or significant drainage. No periwound rashes appreciated or noted otherwise.. Refer to appropriate clinician wound documentation for this visit; right gluteal ulcer extends to healthy appearing adipose with base partially covered with pink granulation, remainder fibrin and slough; improved from last visit in terms of granulation. Wound #1 Right Buttock is a chronic Full Thickness Atypical and has received a status of Not Healed. Subsequent wound encounter measurements are 4.1cm length x 2cm width x 1cm depth, with an area of 8.2 sq cm and a volume of 8.2 cubic cm. Necrotic adipose is exposed. No tunneling has been noted. No sinus tract has been noted. Undermining has been noted at 12:00 and ends at 12:00 with a maximum distance of 2.2cm. There is a small amount of serosanguineous drainage noted which has no odor. The patient reports a wound pain of level 0/10. The wound margin is rolled. Wound bed has No epithelialization, No eschar , Yes slough, Yes bright red, firm granulation. The periwound skin moisture is normal. The periwound skin exhibited: Induration , Erythema. The periwound skin did not exhibit: Atrophie [place]. The temperature of the periwound skin is Warm. Periwound skin does not exhibit signs or symptoms of infection. Local Pulse is N/A. Neurological: Cranial nerves grossly intact with symmetric function normal by informal observation.. ASSESSMENT Active Problems ICD-10 (Encounter Diagnosis) L98.412 - Non-pressure chronic ulcer of buttock with fat layer exposed PROCEDURES Wound #1 Wound #1 (Atypical) is located on the right buttock. A skin/subcutaneous tissue level surgical debridement with a total area debrided of 8.2 sq cm was performed by Adalberto Lombardo MD. Adipose and Subcutaneous were removed along with devitalized tissue: slough. The following instrument(s) were used: curette, forceps, and scissors. Pain control was achieved using 4% Lido. A time out was conducted prior to the start of the procedure. A minimal amount of bleeding was controlled with n/a. The procedure was tolerated well with a pain level of 0 throughout and a pain level of 0 following the procedure. Post Debridement Measurements: 4.1cm length x 2cm width x 1.1cm depth; with an area of 8.2 sq cm and a volume of 9.02 cubic cm; Additional Information Muscle fascia or bone removed and sent to pathology?: No PLAN Wound Orders: Wound #1 Right Buttock Anesthetic Topical Xylocaine to wound bed. - In clinic Cleanser Cleanse Wound: - Normal Saline in clinic. May use distilled water at home. Rinse and gentle wipe. In clinic. Other order: - Sponge bath for now. Dressings Wound Vac: - Adaptic to wound bed. Then one piece of black foam with black foam button. 100mmHg Low Pressure continuous. You should remain on V.A.C. Therapy 24-hours a day. You should not be disconnected for more than 2 hours a day. The clear drape is waterproof and you may wash or shower with dressings in place ONLY if: You are disconnected from the therapy unit. The tubing is clamped. You take care not to soak the dressing. The therapy unit is an electrical system and should not become wet. If dressings become soiled, gently clean with mild soap and water. If the therapy is off for more than 15 minutes, the alarm will sound. If you need more time, press the alarm delay button. You can reset the alarm as many times as you need. If the THERAPY ON/OFF button is accidentally turned off, push the same button to turn the unit back on. The system will return to all the right settings and therapy will continue. Notify your physician/caregiver immediately if: You notice a significant change in color or quantity of the fluid. For example, if you see clear drainage turn to cloudy or bright red. You see the canister fill rapidly. You observe increased redness or odor from the wound. You experience increasing pain. The alarm will not turn off and you have been unable to solve the problem. The V.A.C. Therapy unit is turned off for more than 2 hours per day. You start any new medication. Attending physician/caregiver information: Name [facility] Contact: Change Dressing: - Leave in place. We will change on Tuesday Off-Loading Keep weight off: - Right buttock. Use EHOB cushion when sitting. Turn every 2 hours. Avoid position directing pressure to Wound site. Limit side lying to 30 degree tilt. Limit HOB elevation to 30 degrees in bed. Follow-Up Appointments Return Appointment: - - Tuesdays and Fridays Other information: If you develop fever, chills, increased pain, drainage, redness or swelling please call our office. If after hours, respond to the ER. Should you experience any significant changes in your wound(s) or have any questions regarding your home care instructions please contact the wound center @ [phone]. If after hours, contact your primary care physician or go to the hospital emergency room. Scribing Attestation I attest, as the nurse, that I scribed these orders for the physician. I've reviewed the clinician's documentation and agree with the evaluation and plan as written. In addition, the patient's ulcer demonstrates evidence of non-viable devitalized tissue which will continue to benefit from sharp debridement to help promote granulation and expedite healing. Negative pressure wound therapy will be utilized to facilitate granulation and removal of exudate and infectious material with the goal of expediting wound healing. Electronic Signature(s) Signed By: Date: Adalberto Lombardo MD 05/10/2018 06:59:08 Entered By: Adalberto Lombardo on 05/10/2018 06:35:37
== END ==
PROVIDERS: Family Provider Family Medicine; PCP Family Medicine; Visit Provider Internal Medicine
DX: L98.412 Non-pressure chronic ulcer of buttock with fat layer exposed (principal)
CPT/HCPCS: 11042; 97605

== ENCOUNTER → 2018-05-12 14:02 | Outpatient (CLI) | payer OTHER, SELFPAY ==
--- NOTE | 2018-05-12 | OV.WND_ITS ---
Progress Note Details Patient Name: Jackie Yang Patient Number: [id number] PatientPatientDate: 05/12/2018 Clinician: Yesi Meza Clinician Cosigner: Mara Cohen Physician / Blister Packaging Machine Operator: Adalberto Lombardo SUBJECTIVE Chief Complaint This information was obtained from the patient Non-healing wound on right buttock. Allergies codeine, diphenhydramine, latex, penicillin, adhesive tape (Reaction: some adhesive tapes, rash) HPI This information was obtained from the patient 05/12/18. The patient does not report pain nor increased drainage associated with the chronic right gluteal non-pressure ulcer since her last visit and she does not report significant issues regarding the [employer] wound vac. 05/09/18. Seen by Dr. Lombardo. The patient reports her wound vac alarmed frequently over the past few days however it was left in place and she does not report significant pain or increased drainage associated with the chronic right gluteal non-pressure ulcer since her last visit. 05/05/18. Seen by Dr. Lombardo. The patient does not report pain nor increased drainage associated with the chronic right gluteal non-pressure ulcer since her last visit and she tolerated the [employer] wound vac complaining only of some discomfort where if may be contacting her prosthetic. She's also taking doxycycline for the recent Staph wound culture without reporting adverse effects. 05/02/18. Seen by Dr. Lombardo. 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 04/27/18. Seen by Dr. Lombardo. The patient does not report pain nor increased drainage associated with the chronic right gluteal non-pressure ulcer since her last visit. 04/20/18. Seen by Dr. Lombardo. The patient does not report pain nor increased drainage associated with the chronic right gluteal non-pressure ulcer since her last visit. 04/13/18. Seen by Dr. Lombardo. The patient does not report pain nor increased drainage associated with the chronic right gluteal non-pressure ulcer since her last visit. She'll also complete her course of doxycycline today that's been treating the recent resistant Staph cultured from the ulcer. 04/06/18. Seen by Dr. Lombardo. The patient does not report pain nor increased drainage associated with the chronic right gluteal non-pressure ulcer since her last visit. She apparently was not informed of the doxycycline that was prescribed to treat the resistant Staph positive culture taken at her last visit so she's not yet started on this. 03/29/18. Seen by Dr. Lombardo. 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 She does not report pain at the ulcer site and was placed on antibiotics recently by her PCP for an associated infection. She states she's not sedentary and in fact walks and performs daily activities as much as possible using a frame walker for assistance. Past Medical History This information was obtained from the patient Patient has a medical history of: Depression Anxiety Hypertension Hyperlipidemia Complaints and Symptoms This information was obtained from the patient Patient complains of: General Notes: I have reviewed and concur with the Review of Systems and Past Family Social History documents completed by the clinician, I have reviewed and concur with the Wound Assessment document completed by the clinician Hematologic/Lymphatic: Bleeding Tendency Integumentary (Hair/Skin/Nails): Open Sore Musculoskeletal: Assistive Devices Prior Wound History: Drainage, Erythema Patient denies complaints or symptoms related to: Cardiovascular (Central): Irregular heart beat Constitutional Symptoms (General Health): Chills, Fever Ear/Nose/Mouth/Throat: Hearing Loss / Aid Hematologic/Lymphatic: Bleeding / Clotting Disorders Musculoskeletal: Muscle Wasting Neurological: Loss of Protective Sensation Psychiatric: Memory Loss Respiratory: Shortness of Breath OBJECTIVE Constitutional BP elevated; Afebrile; Alert and in no distress. Well developed. Alert. Clean appearing.. Height/Length: 61 in (154.94 cm), Weight: 113 lbs (51.36 kgs), BMI: 21.3, Temperature: 97.3 ?F (36.28 ?C), Pulse: 57 bpm, Respiratory Rate: 16 breaths/min, Blood Pressure: 142/63 mmHg, Pulse Oximetry: 98 %. Ears, Nose, Mouth, and Throat: Mild hearing deficit. Neck: Normal range of motion.. Musculoskeletal: Right leg AKA. Integumentary (Hair, Skin) No periwound erythema, warmth, or significant drainage. No periwound rashes appreciated or noted otherwise.. Refer to appropriate clinician wound documentation for this visit;right gluteal ulcer extends to healthy appearing adipose with base partially covered with pink granulation, remainder fibrin and slough; improved from last visit in terms of granulation. Wound #1 Right Buttock is a chronic Full Thickness Atypical and has received a status of Not Healed. Subsequent wound encounter measurements are 3.5cm length x 2.5cm width x 1.4cm depth, with an area of 8.75 sq cm and a volume of 12.25 cubic cm. Necrotic adipose is exposed. No tunneling has been noted. No sinus tract has been noted. Undermining has been noted at 12:00 and ends at 12:00 with a maximum distance of 1.2cm. There is a small amount of serosanguineous drainage noted which has no odor. The patient reports a wound pain of level 0/10. The wound margin is rolled. Wound bed has No epithelialization, No eschar, Yes slough, Yes bright red, firm granulation. The periwound skin moisture is normal. The periwound skin exhibited: Induration , Erythema. The periwound skin did not exhibit: Brawny Induration, Edema, Excoriation, Callus, Crepitus, Fluctuance, Friable, Rash, Atrophie [place], Cyanosis, Ecchymosis, Hemosiderosis , Pallor, Rubor. The temperature of the periwound skin is Warm. Periwound skin does not exhibit signs or symptoms of infection. Local Pulse is N/A. Neurological: Cranial nerves grossly intact with symmetric function normal by informal observation.. ASSESSMENT Active Problems ICD-10 (Encounter Diagnosis) L98.412 - Non-pressure chronic ulcer of buttock with fat layer exposed PROCEDURES Wound #1 Wound #1 (Atypical) is located on the right buttock. A skin/subcutaneous tissue level surgical debridement with a total area debrided of 8.75 sq cm was performed by Adalberto Lombardo MD. Adipose and Subcutaneous were removed along with devitalized tissue: exudate, necrotic/eschar, and slough. The following instrument(s) were used: curette, forceps, and scissors. Pain control was achieved using 4% Lido. A time out was conducted prior to the start of the procedure. A moderate amount of bleeding was controlled with pressure. The procedure was tolerated well with a pain level of 0 throughout and a pain level of 0 following the procedure. Post Debridement Measurements: 3.5cm length x 2.5cm width x 1.5cm depth; with an area of 8.75 sq cm and a volume of 13.125 cubic cm; Additional Information Muscle fascia or bone removed and sent to pathology?: No PLAN Wound Orders: Wound #1 Right Buttock Anesthetic Topical Xylocaine to wound bed. - In clinic. Cleanser Cleanse Wound: - Normal Saline in clinic. Other order: - Sponge bath for now. Dressings Wound Vac: - Adaptic to wound bed. Black foam to base, and one piece of black foam to bridge to hip. 100mmHg, continuous. You should remain on V.A.C. Therapy 24-hours a day. You should not be disconnected for more than 2 hours a day. The clear drape is waterproof and you may wash or shower with dressings in place ONLY if: You are disconnected from the therapy unit. The tubing is clamped. You take care not to soak the dressing. The therapy unit is an electrical system and should not become wet. If dressings become soiled, gently clean with mild soap and water. If the therapy is off for more than 15 minutes, the alarm will sound. If you need more time, press the alarm delay button. You can reset the alarm as many times as you need. If the THERAPY ON/OFF button is accidentally turned off, push the same button to turn the unit back on. The system will return to all the right settings and therapy will continue. Notify your physician/caregiver immediately if: You notice a significant change in color or quantity of the fluid. For example, if you see clear drainage turn to cloudy or bright red. You see the canister fill rapidly. You observe increased redness or odor from the wound. You experience increasing pain. The alarm will not turn off and you have been unable to solve the problem. The V.A.C. Therapy unit is turned off for more than 2 hours per day. You start any new medication. Attending physician/caregiver information: Name [facility] Contact: Change Dressing: - Leave in place. Off-Loading Keep weight off: - Right buttock. Use EHOB cushion when sitting. Turn every 2 hours. Avoid position directing pressure to Wound site. Limit side lying to 30 degree tilt. Limit HOB elevation to 30 degrees in bed. Follow-Up Appointments Return Appointment: - - Tuesdays and Fridays for [facility]. Other information: If you develop fever, chills, increased pain, drainage, redness or swelling please call our office. If after hours, respond to the ER. Should you experience any significant changes in your wound(s) or have any questions regarding your home care instructions please contact the wound center @ [phone]. If after hours, contact your primary care physician or go to the hospital emergency room. Scribing Attestation I attest, as the nurse, that I scribed these orders for the physician. I've reviewed the clinician's documentation and agree with the evaluation and plan as written. In addition, the patient's ulcer demonstrates evidence of non-viable devitalized tissue which will continue to benefit from sharp debridement to help promote granulation and expedite healing. Negative pressure wound therapy will be utilized to facilitate granulation and removal of exudate and infectious material with the goal of expediting wound healing. Electronic Signature(s) Signed By: Date: Adalberto Lombardo MD 05/15/2018 13:28:46 Entered By: Adalberto Lombardo on 05/15/2018 06:51:43
== END ==
PROVIDERS: Family Provider Family Medicine; PCP Family Medicine; Visit Provider Internal Medicine
DX: L98.412 Non-pressure chronic ulcer of buttock with fat layer exposed (principal)
CPT/HCPCS: 11042; 97605

== ENCOUNTER → 2018-05-16 14:23 | Outpatient (CLI) | payer OTHER, SELFPAY ==
--- NOTE | 2018-05-16 | OV.WND_ITS ---
Progress Note Details Patient Name: Jackie Yang Patient Number: [id number] PatientPatientDate: 05/16/2018 Clinician: Yesi Meza Clinician Cosigner: Mara Cohen Physician / Eyeglass Frames Inspector: Adalberto Lombardo SUBJECTIVE Chief Complaint This information was obtained from the patient Non-healing wound on right buttock. Allergies codeine, diphenhydramine, latex, penicillin, adhesive tape (Reaction: some adhesive tapes, rash) HPI This information was obtained from the patient 05/16/18. Seen by Dr. Lombardo. The patient does not report pain nor increased drainage associated with the chronic right gluteal non-pressure ulcer since her last visit and she does not report significant issues regarding the [employer] wound vac. 05/12/18. The patient does not report pain nor increased drainage associated with the chronic right gluteal non-pressure ulcer since her last visit and she does not report significant issues regarding the [employer] wound vac. 05/09/18. Seen by Dr. Lombardo. The patient reports her wound vac alarmed frequently over the past few days however it was left in place and she does not report significant pain or increased drainage associated with the chronic right gluteal non-pressure ulcer since her last visit. 05/05/18. Seen by Dr. Lombardo. The patient does not report pain nor increased drainage associated with the chronic right gluteal non-pressure ulcer since her last visit and she tolerated the [employer] wound vac complaining only of some discomfort where if may be contacting her prosthetic. She's also taking doxycycline for the recent Staph wound culture without reporting adverse effects. 05/02/18. Seen by Dr. Lombardo. 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 04/27/18. Seen by Dr. Lombardo. The patient does not report pain nor increased drainage associated with the chronic right gluteal non-pressure ulcer since her last visit. 04/20/18. Seen by Dr. Lombardo. The patient does not report pain nor increased drainage associated with the chronic right gluteal non-pressure ulcer since her last visit. 04/13/18. Seen by Dr. Lombardo. The patient does not report pain nor increased drainage associated with the chronic right gluteal non-pressure ulcer since her last visit. She'll also complete her course of doxycycline today that's been treating the recent resistant Staph cultured from the ulcer. 04/06/18. Seen by Dr. Lombardo. The patient does not report pain nor increased drainage associated with the chronic right gluteal non-pressure ulcer since her last visit. She apparently was not informed of the doxycycline that was prescribed to treat the resistant Staph positive culture taken at her last visit so she's not yet started on this. 03/29/18. Seen by Dr. Lombardo. 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 She does not report pain at the ulcer site and was placed on antibiotics recently by her PCP for an associated infection. She states she's not sedentary and in fact walks and performs daily activities as much as possible using a frame walker for assistance. Past Medical History This information was obtained from the patient Patient has a medical history of: Depression Anxiety Hypertension Hyperlipidemia Complaints and Symptoms This information was obtained from the patient Patient complains of: General Notes: I have reviewed and concur with the Review of Systems and Past Family Social History documents completed by the clinician, I have reviewed and concur with the Wound Assessment document completed by the clinician Hematologic/Lymphatic: Bleeding Tendency Integumentary (Hair/Skin/Nails): Open Sore Musculoskeletal: Assistive Devices Prior Wound History: Drainage, Erythema Patient denies complaints or symptoms related to: Cardiovascular (Central): Irregular heart beat Constitutional Symptoms (General Health): Chills, Fever Ear/Nose/Mouth/Throat: Hearing Loss / Aid Hematologic/Lymphatic: Bleeding / Clotting Disorders Musculoskeletal: Muscle Wasting Neurological: Loss of Protective Sensation Psychiatric: Memory Loss Respiratory: Shortness of Breath OBJECTIVE Constitutional Vital signs reviewed and noted. Well developed. Alert. Clean appearing.. Height/ Length: 61 in (154.94 cm), Weight: 113 lbs (51.36 kgs), BMI: 21.3, Temperature: 97.7 ?F (36.5 ?C), Pulse: 60 bpm, Respiratory Rate: 16 breaths/min, Blood Pressure: 124/63 mmHg, Pulse Oximetry: 100 %. Respiratory: No respiratory distress. Even respirations and without use of accessory muscles.. Musculoskeletal: Right leg AKA. Integumentary (Hair, Skin) No periwound erythema, warmth, or significant drainage. No periwound rashes appreciated or noted otherwise.. Refer to appropriate clinician wound documentation for this visit; right gluteal ulcer extends to adipose with distal base mostly covered with pink granulation and proximal half covered with soft, wet adipose and slough; approx 1-2cm undermining along the proximal margin. Wound #1 Right Buttock is a chronic Full Thickness Atypical and has received a status of Not Healed. Subsequent wound encounter measurements are 4cm length x 1.5cm width x 1.4cm depth, with an area of 6 sq cm and a volume of 8.4 cubic cm. Necrotic adipose is exposed. No tunneling has been noted. No sinus tract has been noted. Undermining has been noted at 12:00 and ends at 12:00 with a maximum distance of 1.6cm. There is a small amount of serosanguineous drainage noted which has no odor. The patient reports a wound pain of level 0/10. The wound margin is rolled. Wound bed has No epithelialization, No eschar , Yes slough, Yes bright red, firm granulation. The periwound skin moisture is normal. The periwound skin exhibited: Induration , Erythema. The periwound skin did not exhibit: Brawny Induration, Edema, Excoriation, Callus, Crepitus, Fluctuance, Friable, Rash, Atrophie Gould, Cyanosis, Ecchymosis, Hemosiderosis , Pallor, Rubor. The temperature of the periwound skin is Warm. Periwound skin does not exhibit signs or symptoms of infection. Local Pulse is N/A. Neurological: Cranial nerves grossly intact with symmetric function normal by informal observation.. ASSESSMENT Active Problems ICD-10 (Encounter Diagnosis) L98.412 - Non-pressure chronic ulcer of buttock with fat layer exposed PROCEDURES Wound #1 Wound #1 (Atypical) is located on the right buttock. A skin/subcutaneous tissue level surgical debridement with a total area debrided of 6 sq cm was performed by Adalberto Lombardo MD. Subcutaneous was removed along with devitalized tissue: fibrin, necrotic/eschar , and slough. The following instrument(s) were used: forceps and scissors. Pain control was achieved using 4% Lido. A time out was conducted prior to the start of the procedure. A minimal amount of bleeding was controlled with n/a. The procedure was tolerated well with a pain level of 0 throughout and a pain level of 0 following the procedure. Post Debridement Measurements: 4cm length x 1.5cm width x 1.5cm depth; with an area of 6 sq cm and a volume of 9 cubic cm; Additional Information Muscle fascia or bone removed and sent to pathology?: No PLAN Wound Orders: Wound #1 Right Buttock Anesthetic Topical Xylocaine to wound bed. - In clinic. Cleanser Cleanse Wound: - Normal Saline in clinic. Other order: - Sponge bath for now. Dressings Pack wound: - Lightly fill with sterile gauze. Cover and secure with: - Silicone bordered foam. Change Dressing: - Every other day. Off-Loading Keep weight off: - Right buttock. Use EHOB cushion when sitting. Turn every 2 hours. Avoid position directing pressure to Wound site. Limit side lying to 30 degree tilt. Limit HOB elevation to 30 degrees in bed. Follow-Up Appointments Return Appointment: - - One week. Other information: If you develop fever, chills, increased pain, drainage, redness or swelling please call our office. If after hours, respond to the ER. Should you experience any significant changes in your wound(s) or have any questions regarding your home care instructions please contact the wound center @ [phone]. If after hours, contact your primary care physician or go to the hospital emergency room. Scribing Attestation I attest, as the nurse, that I scribed these orders for the physician. General Notes: Referral being sent to general surgery for debridement. I've reviewed the clinician's documentation and agree with the evaluation and plan as written. In addition, the patient's ulcer demonstrates evidence of non-viable devitalized tissue which will continue to benefit from sharp debridement to help promote granulation and expedite healing. Also, due to the significant undermining along the proximal margin of the ulcer and persistence of slough I'm going to refer the patient to general surgery for consideration of additional deep debridement. I've held the wound vac today and will restart NPWT pending surgery 's plan and once the ulcer base has been adequately debrided. Electronic Signature(s) Signed By: Date: Adalberto Lombardo MD 05/17/2018 06:45:54 Entered By: Adalberto Lombardo on 05/16/2018 20:53:52
== END ==
PROVIDERS: Family Provider Family Medicine; PCP Family Medicine; Visit Provider Internal Medicine
DX: L98.412 Non-pressure chronic ulcer of buttock with fat layer exposed (principal)
CPT/HCPCS: 11042

== ENCOUNTER 2018-05-23 10:40 | Day surgery (SDC) | payer OTHER, SELFPAY ==
[2018-05-22 08:52] VITALS: BMI 22.4
[2018-05-23] VITALS (8 sets, daily range): BP systolic 128–158; BP diastolic 7–77; PULSE 55–61; RESP 8–16; TEMP 36.1–36.9; O2SAT 94–100; BMI 22.4
--- NOTE | 2018-05-23 | PATH_ITS ---
[facility] Accession Number: [id number] . 01 Material submitted: . RIGHT GLUTEAL . 01 Clinical history: . ULCER BED . 01 Diagnosis: Right Gluteal Ulcer, Debridement: Ulcerated skin with chronic active inflammation, associated granulation tissue and fat necrosis. Negative for malignancy. [facility]/05/25/2018 . 01 Electronically signed: . Radha Phillips MD, Pathologist NPI- [id number] . 01 Gross description: . Received in formalin, labeled right gluteal ulcer bed, is an unoriented ellipse of worthy-white smooth shiny skin with underlying tissue (7.5 x 4.2 x 3.5 cm) containing an open ulcer (4.0 x 1.7 cm). The resection margin is inked black. Section code: (A1, A2-A3, A4-A5) three full-thickness serial sections. ([id number]) /MRV . 01 Pathologist provided ICD-10: L89.319 . 01 CPT . 037050 Performed at: [address] [facility] [address], [place], [place] [id number] MD Yony Huff MD Phone: [phone]
--- NOTE | 2018-05-23 11:18 | PM.PREOP ---
Pre-operative Note Interval Note Pre-op Check: Yes History & Physical Reviewed by Physician and Yes Exam Performed Changes: No H&P completed within 30 days and has changed as indicated here:: Patient seen and examined in the preoperative area. Surgical site marked accordingly. History and physical examination on the chart dated May 18, 2018 has not changed. Proceed with pressure ulcer debridement today under anesthesia as planned.
[2018-05-23] MEDS: LACTATED RINGERS 1,000 ML 100 ML IV (11:22)
[2018-05-23] MEDS: CLINDAMYCIN 900 MG/50 ML PIGGYBACK 50 MG IV (11:30)
--- NOTE | 2018-05-23 12:14 | SUR.OPER ---
Lateral on padded OR bed, head on pillow, gel axillary roll in place, bottom leg bent with gel pad under knee to foot, Upper arm supported by pillows and secured over bottom arm to padded arm board. Safety belt at hip, tape over blanket lower legs.
[2018-05-23] MEDS: BUPIVACAINE 0.5% (PF) VIAL 30 ML INJ (12:29)
--- NOTE | 2018-05-23 12:32 | SUR.OPER ---
right ear lobe reddened.. pt states its from an earing.. also says she has been urinating more frequently
--- NOTE | 2018-05-23 13:00 | PM.OP.1 ---
Operative Date/Time/Diagnoses Date of procedure: 05/23/18 Time of procedure: 13:00 Pre-op diagnosis: Infected grade 4 pressure ulcer right gluteal region Post-op diagnosis: same Procedure & Clinicians Procedure: Sharp debridement of grade 4 right gluteal pressure ulcer including skin, subcutaneous tissue, fascia, and muscle with total defect measuring 11 x 7 x 3 cm Same procedure as scheduled: Yes Indications: 77-year-old female status post right above knee amputation several years ago who developed a pressure ulcer in the right gluteal region several months ago. Despite wound VAC and other local wound treatments the area progressed and has now become secondarily infected. Healing has ceased and the wound is now continuing to enlarge. Therefore sharp debridement in the operating room was recommended. Surgeon: Kevin Thompson Click Yes if Unassisted: Yes Anesthesia Type: General Operative Notes Findings: 1. Extensive skin necrosis and purulent exudate densely adherent underlying gluteal muscle and fascia 2. Viable muscle, skin, and subcutaneous fat following debridement as above Closure Type: not applicable (Wound packed open with saline impregnated Kerlix gauze) Specimen(s): other (1. Fluid for Gram stain and culture 2. Right gluteal pressure ulcer for permanent section) Implants & Drains: None Applied: other (Wound packing as above) Estimated Blood Loss (mL): 150 Blood products transfused: none Procedure in detail: After obtaining informed consent the patient was brought to the operating room and left supine on the table. After satisfactory induction of anesthesia she was placed in left lateral decubitus position. All pressure points were padded appropriately. SCOAP time out was performed per standard protocol. Right gluteal region was prepped and draped in usual sterile fashion. Sharp dissection using 15 scalpel blade was then performed followed by the Bovie to excise obviously necrotic and infected tissue. There was excellent bleeding from the residual normal surrounding tissue. The ulcer cavity extended deep to the gluteus muscle and through the fascia toward the ligament. But the ligament was viable near the sacrum. Bone and periosteum were not exposed. The entire ulcer cavity and surrounding tissue was excised as a single specimen and sent for permanent section after we had initially taken a specimen of the purulent fluid at the beginning of the case for culture. Hemostasis was achieved with the Bovie. Wound was irrigated with copious amounts of sterile saline solution and total volume of 3 L using the Pulsevac device. Hemostasis was again verified. A total of 25 cc of 0.5% plain Marcaine was injected into the wound bed for postoperative analgesia. Wound was packed with Kerlix gauze impregnated with saline. Alevyn dressings were then placed over 4 x 4 gauze to cover the wound. Patient was returned to supine position. Anesthesia was reversed and she was extubated in the operating room. She was taken recovery in stable condition. Complications: none Condition: stable Disposition: PACU Plan for aftercare: 1. Discharge home 2. Follow up in the [facility] tomorrow for packing change and/or wound VAC application per their discretion
--- NOTE | 2018-05-23 13:34 | SUR.PHASEI ---
small spot of clear drainage on buttock dressing. Purple/erythema and edema to rt earlobe and report received that pt c/o urinary frequency, both concerns reported to MAGGIE Tanner.
== END 2018-05-23 14:20 | disposition home or self-care (01) ==
PROVIDERS: Family Provider Family Medicine; PCP Family Medicine; Visit Provider Surgery
PROC: (CPT 11043; principal; 2018-05-23 15:45)
DX: L89.44 Pressure ulcer of contiguous site of back, buttock and hip, stage 4 (principal); Z99.3 Dependence on wheelchair; F41.9 Anxiety disorder, unspecified; E78.5 Hyperlipidemia, unspecified; I10 Essential (primary) hypertension; Z89.611 Acquired absence of right leg above knee; Z86.718 Personal history of other venous thrombosis and embolism
CPT/HCPCS: 11043; 11046; 87070; 87075; 87077; 87147; 87186; 87205; 93005; 93010; J2250; J2405; J2704; J3010

== ENCOUNTER → 2018-05-24 09:35 | Outpatient (CLI) | payer OTHER, SELFPAY | PROVIDERS: Family Provider Family Medicine; PCP Family Medicine; Visit Provider Family Medicine | DX: L89.314 Pressure ulcer of right buttock, stage 4 (principal) | CPT/HCPCS: 97605; 99213 ==

== ENCOUNTER → 2018-05-25 10:45 | Outpatient (CLI) | payer OTHER, SELFPAY | PROVIDERS: Family Provider Family Medicine; PCP Family Medicine; Visit Provider Family Medicine | DX: L89.314 Pressure ulcer of right buttock, stage 4 (principal) | CPT/HCPCS: 97605 ==